=== PATIENT | female | born 1985 | race Caucasian/White ===

== ENCOUNTER → 2016-12-20 | Outpatient (CLI) | payer OTHER ==
[~2016-12-20] MED LIST: IBUP600T44 PO; INSU70IN2 SC; NVLGI7030 SC; OXYC-57 PO; PRENTAB26 PO
[2016-12-20 14:52] LABS: URINE APPEARANCE CLEAR (CLEAR); URINE BILIRUBIN NEG (NEG); URINE COLOR YELLOW; URINE EPITHELIAL CELL AUTO >30 /lpf (0-5); URINE NITRITE NEG (NEG); URINE SPECIFIC GRAVITY 1.008 (1.000-1.030); UROBILINOGEN NEG (NEG)
[2016-12-20 14:59] LABS: MANUAL MICROSCOPIC REQUIRED? NO; REVIEW REQ? NO
== END | disposition home or self-care (01) ==
LOC: C.LABSPEC 14:01
PROVIDERS: ATTEND Obstetrics & Gynecology
DX: Z34.93 Encounter for supervision of normal pregnancy, unspecified, third trimester (principal)

== ENCOUNTER → 2016-12-20 | Outpatient (CLI) | payer OTHER ==
[2016-12-20 11:25] LABS: HEMATOCRIT 34.4 % (37-47)
== END | disposition home or self-care (01) ==
LOC: C.LAB1850 10:09
PROVIDERS: ATTEND Obstetrics & Gynecology
DX: Z34.93 Encounter for supervision of normal pregnancy, unspecified, third trimester (principal)

== ENCOUNTER → 2017-01-03 | Outpatient (CLI) | payer OTHER | END | disposition home or self-care (01) | LOC: C.LABSPEC 16:01 | PROVIDERS: ATTEND Internal Medicine | DX: Z34.93 Encounter for supervision of normal pregnancy, unspecified, third trimester (principal) ==

== ENCOUNTER 2017-03-06 00:07 | Inpatient (IN) | payer OTHER ==
[~2017-03-06] VITALS: Ht 160 cm; Wt 95.7 kg
[2017-03-06] VITALS (16 sets, daily range): BP systolic 108–118; BP diastolic 68–74; PULSE 75–87; TEMP 36.7–36.8; O2SAT 95–98; Ht 160 cm; Wt 95.7 kg
[~2017-03-06 00:07] MED LIST changes: -INSU70IN2 SC; -NVLGI7030 SC; -OXYC-57 PO
[2017-03-06] MEDS ORDERED: LACTATED RINGER'S 1000ML 1,000 ML IV SCH ×2 (00:29→13:15)
[2017-03-06] MEDS ORDERED: CEFAZOLIN IV 2,000 MG in DEXTROSE 5% 50ML 50 ML IV STA (00:33)
[2017-03-06] MEDS ORDERED: CITRIC ACID/SODIUM CITRATE 15 ML UDC PO STA (00:33)
[2017-03-06 00:49] LABS: BASO % 0.1 %; BASO ABS # 0.02 K/uL (0-0.2); COMPLETE YES; EOS % 0.9 %; HEMATOCRIT 34.5 % (37-47); IG% 1.7 %; LYMPH % 16.8 %; LYMPH ABS # 2.34 K/uL (1.2-3.4); MEAN CELL VOLUME 84.1 fL (80-100); MEAN CORPUSCULAR HEMOGLOBIN 27.8 pg (25-34); MEAN PLATELET VOLUME 12.3 fL (7.4-10.4); MONO % 7.2 %; NEUT % 73.3 %; PLATELET COUNT 170 K/uL (130-400); WHITE BLOOD COUNT 13.96 K/uL (4.8-10.8)
[2017-03-06] MEDS ORDERED: MoRPHine SULFATE PF 1 MG/ML 10 ML AMP/VIAL ONE (00:51)
[2017-03-06] MEDS ORDERED: FENTANYL CITRATE INJ 50 MCG/1 ML 2 ML VIAL ONE (00:51)
[2017-03-06] MEDS ORDERED: EpHEDrine SULFATE INJ 50 MG/ML AMP ONE (00:51)
[2017-03-06] MEDS ORDERED: ONDANSETRON INJ 2 MG/ML 2 ML VIAL ONE (00:51)
[2017-03-06] MEDS ORDERED: OXYTOCIN INJ 10 UNITS/ML VIAL ONE (00:51)
[2017-03-06] MEDS ORDERED: PHENYLEPHRINE 100MCG/ML 5ML SYR ONE (01:36)
--- NOTE | 2017-03-06 01:57 | [facility] Post Operative Brief Note ---
Immediate Operative Summary Operative Date Mar 06, 2017. Pre-Operative Diagnosis 1. Term 2. Previous caesarean section 3. Gestational diabetes on insulin 4. Spontaneous rupture of membranes Post-Operative Diagnosis Same Procedure(s) Performed Repeat caesarean section Lower uterine transverse incision Delivery of live male child at [address] Back Shaper And Presser Surgeon(s) None Estimated Blood Loss 800cc Findings viable male , Apgars 8/9; weight 7lbs 8ozs, art/venous cord gasses pending , nml appearing tubes and ovaries bilaterally Fluids (cc crystalloids) 1300 Specimens Placenta-hold Cord blood Cord blood gases Drains [place] to gravity Anesthesia Spinal Complication(s) None Disposition L&D
[2017-03-06] MEDS ORDERED: SUPERCREAM 0.870 % 15GM JAR EXT PRN (02:00)
[2017-03-06] MEDS ORDERED: DIPHTHERIA/TETANUS/PERTUSSIS 0.5 ML SYR/VIAL IM. ONE (02:00)
[2017-03-06] MEDS ORDERED: HYDROCORTISONE ACETATE 25 MG SUPP PR PRN (02:00)
[2017-03-06] MEDS ORDERED: LANOLIN OINT EXT PRN ×2 (02:00)
[2017-03-06] MEDS ORDERED: DiphenhydrAMINE HCL 50 MG/ML VIAL IV PRN ×3 (02:00→19:00)
[2017-03-06] MEDS ORDERED: BENZOCAINE 20% AER SPR 82.5 GM CAN EXT PRN (02:00)
[2017-03-06] MEDS ORDERED: LACTATED RINGER'S 1000ML 500 ML IV PRN (02:08)
[2017-03-06] MEDS ORDERED: SODIUM CHLORIDE 0.9% 1000ML 1,000 ML IV PRN (02:08)
[2017-03-06] MEDS ORDERED: NALOXONE HCL INJ 0.08 MG in SYRINGE 1.8 ML IV PRN (02:08)
--- NOTE | 2017-03-06 02:13 | Anesthesiology Progress Note ---
Anesthesia Post Op Note Date & Time Mar 06, 2017 at 02:08 Notes Mental Status: alert / awake / arousable, participated in evaluation Pt Amnestic to Procedure: No (as expected) Nausea / Vomiting: adequately controlled Pain: adequately controlled Airway Patency, RR, SpO2: stable & adequate BP & HR: stable & adequate Hydration State: stable & adequate Anesthetic Complications: no major complications apparent Pt had C/S for prior C/S, in labor w/ ruptured membranes, under spinal. Her anesthetic course was completely uneventful. The procedure was finished so quickly that I was unable to give the amount of IV fluids that I would have liked given the EBL, so I instructed the pt's nurse to give the remaining 700 mL LR in the bag. BP and HR very much stable despite this. Post-op vitals BP 128 /71, HR 96, RR 18, SpO2 98% on RA, T 36.8.
[2017-03-06] MEDS ORDERED: MoRPHine SULFATE PF 1 MG/ML 10 ML AMP/VIAL EPI PRN (02:15)
[2017-03-06] MEDS ORDERED: MoRPHine SULFATE 2 MG/ML CARP IV PRN (02:15)
[2017-03-06] MEDS ORDERED: NO NARCOTICS OR SEDATIVES SCH (02:15)
[2017-03-06] MEDS ORDERED: NALOXONE HCL 0.4 MG/1 ML VIAL/CARP IV PRN (02:15)
[2017-03-06] MEDS ORDERED: NALBUPHINE HCL INJ 10 MG/ML AMP IV PRN (02:15)
[2017-03-06] MEDS ORDERED: ONDANSETRON INJ 2 MG/ML 2 ML VIAL IV PRN ×2 (02:15→19:00)
[2017-03-06] MEDS ORDERED: MEPERIDINE HCL 25 MG/ML CARP IV PRN (02:15)
[2017-03-06] MEDS ORDERED: DC INTRASPINAL MORPHINE SCH (02:15)
[2017-03-06] MEDS ORDERED: PROMETHAZINE HCL INJ 25 MG in SODIUM CHLORIDE 0.9% 50ML 50 ML IV PRN (02:15)
[2017-03-06] MEDS ORDERED: EpHEDrine SULFATE INJ 50 MG/ML AMP IV PRN (02:15)
[2017-03-06] MEDS: OXYTOCIN INJ 20 UNITS in LACTATED RINGER'S 1000ML 1,000 ML IV SCH ×2 (02:36→07:43)
[2017-03-06] MEDS ORDERED: NVLGI7030 SC (02:40)
[2017-03-06] MEDS ORDERED: INSU70IN2 SC (02:40)
--- NOTE | 2017-03-06 03:22 | HISTORY & PHYSICAL EXAMINATION ---
DATE OF ADMISSION: 03/06/2017 ADMITTING DIAGNOSES: 1. Term . 2. Previous section. 3. Spontaneous rupture of membranes. 4. Gestational diabetes, on insulin. ADMISSION HISTORY: The patient is a 31-year-old 2, para 1 with an EDC of 15 March by dates and first trimester ultrasound who is admitted with spontaneous rupture of membranes. The patient states that membranes ruptured approximately 2300 hours on 03/05/2017. She described the fluid as clear. She had subsequent onset of contractions after rupture of membranes. The patient had been scheduled for a repeat section on 10 March. Her first ended in section because of a breech presentation. She had been counseled on the risks and benefits of a vaginal after a section, but the patient had opted for a repeat section. The patient's course was remarkable for gestational diabetes, on insulin. Insulin started at approximately 28 weeks. The patient was followed with growth scans as well as testing, which was all reassuring. The remainder of her course was unremarkable. The patient's blood type A positive, antibody negative, rubella immune, hepatitis B negative. She declined a quad screen and she had a positive third trimester beta strep culture. PAST MEDICAL HISTORY AND OBSTETRICAL: As above. NEUROPSYCHOLOGY DIRECTOR HISTORY: Cryosurgery of the cervix. MEDICAL: None. SURGICAL: [place] teeth extraction. ALLERGIES: TO PENICILLIN, UNKNOWN REACTION OCCURRED A CHILD. SOCIAL HISTORY: No smoking. FAMILY HISTORY: Noncontributory. REVIEW OF SYSTEMS: As per HPI. ADMISSION PHYSICAL EXAMINATION: GENERAL: Shows a gravid female in no acute distress. VITAL SIGNS: Blood pressure of 108/78 and a weight of 211 pounds. HEENT EXAMINATION: Unremarkable. NECK: Supple. LUNGS: Clear. HEART: With a regular rhythm and rate. ABDOMEN: Gravid, vertex, positive heart tones, estimated weight of 8 pounds. PELVIC: Shows the cervix to be 3-cm dilated, 80% effaced, -1 with gross rupture of membranes. EXTREMITIES: Shows +1 edema, no deep calf tenderness. NEUROLOGIC: Grossly intact. IMPRESSION: A 31-year-old 2, para 1, gestational diabetes on insulin, previous section with spontaneous rupture of membranes. PLAN: The risks, benefits and alternatives to the section have been discussed. While the benefits will be delivery of the infant, the risks of bleeding, infection, inadvertent injury to bowel or bladder, and injury to the baby. Permit has been signed and she wishes to proceed.
--- NOTE | 2017-03-06 03:22 | OPERATIVE REPORT ---
DATE OF OPERATION: 03/06/2017 PREOPERATIVE DIAGNOSES: 1. Term . 2. Previous section. 3. Gestational diabetes, on insulin. 4. Spontaneous rupture of membranes. POSTOPERATIVE DIAGNOSES: Same. PROCEDURE PERFORMED: Repeat low cervical transverse section. SURGEON: Panfilo Back MD ANESTHESIA: Spinal. FINDINGS: Viable male infant with Apgars of 8 and 9, and weight of 7 pounds 8 ounces. Arterial and venous cord gases pending. Normal-appearing tubes and ovaries bilaterally. PROCEDURE IN DETAIL: The patient was taken to the operating room and after spinal anesthesia was placed in supine position and draped and prepped in the usual fashion. Pfannenstiel-type incision through previous surgical scar was made. Underlying subcutaneous tissue was dissected down to the ventral abdominal fascia, which was nicked and opened in a horizontal manner. Preperitoneal fascia was dissected away until the peritoneal cavity was entered and opened in a vertical manner. The peritoneum was entered and opened in a vertical manner. Bladder blade was placed. The peritoneum overlying the uterus was elevated and opened in a semi-lunar fashion. The inferior margin of which was taken down creating the bladder flap. The uterus was entered sharply and extended in a semi-lunar fashion manually. Viable male infant with description as above was delivered. Cord was clamped and cut and the baby was passed off to pediatrics who was in attendance for the delivery. Cord gases, cord blood samples obtained. Placenta was delivered spontaneously and the uterus was exteriorized. The uterine cavity was wiped clean of any residual blood tissue and/or clot. Uterine incision was then closed with 2 layers of 4-0 Vicryl, the first a running locking stitch, the second an imbricating stitch. Hemostasis achieved. The uterus was returned to the pelvic cavity. The paracolic gutters were cleared bilaterally of any blood tissue and/or clot. Uterine incision was copiously irrigated with 1000 mL of warm saline. Pedicles were inspected for hemostasis, which was present. Sponge and needle count was correct. The rectus muscle was then plicated in the midline with a running 2-0 Vicryl stitch. The fascia was closed laterally with a running 0 Vicryl suture. Subcutaneous tissue was irrigated with warm saline and the skin incision was closed with a 4-0 Monocryl subcuticular stitch. Sterile dressing was applied and the patient was taken to the recovery room in satisfactory condition. I attest to the content of the Intraoperative Record and any orders documented therein. Any exceptio ns are noted below.
[2017-03-06] MEDS: KETOROLAC TROMETHAMINE 30 MG/ML VIAL IV. PRN ×3 (05:51→18:10)
[2017-03-06] MEDS: PRENATAL VITAMIN TAB PO SCH (07:55)
[2017-03-06] MEDS: FERROUS SULFATE 325 MG TAB PO SCH (07:55)
[2017-03-06] MEDS ORDERED: NURSING VERBAL MED ORDER ONE (13:00)
[2017-03-06] MEDS ORDERED: OXYCODONE/ACETAMINOPHEN 5-325 TAB PO PRN (19:00)
[2017-03-06] MEDS ORDERED: KETOROLAC TROMETHAMINE 30 MG/ML VIAL IV. PRN (19:00)
[2017-03-07 06:32] LABS: BASO % 0.3 %; BASO ABS # 0.04 K/uL (0-0.2); COMPLETE YES; EOS % 0.9 %; IG% 1.3 %; LYMPH % 19.5 %; LYMPH ABS # 2.82 K/uL (1.2-3.4); MEAN CELL VOLUME 86.6 fL (80-100); MEAN CORPUSCULAR HEMOGLOBIN 28.9 pg (25-34); MEAN CORPUSCULAR HGB CONC 33.3 g/dl (32-36); MEAN PLATELET VOLUME 12.1 fL (7.4-10.4); MONO % 6.1 %; NEUT % 71.9 %; PLATELET COUNT 150 K/uL (130-400); RED BLOOD COUNT 3.81 M/uL (4.2-5.4); WHITE BLOOD COUNT 14.48 K/uL (4.8-10.8)
--- NOTE | 2017-03-07 07:01 | Progress Note ---
Subjective Mar 07, 2017. Subjective conversation w/ patient, physical exam Voiding: no voiding problems Diet Tolerance: Regular Diet Feeding Type: Breast Feeding Objective Vital Signs Date Time Temp Pulse Resp B/P Pulse Ox O2 Delivery O2 Flow Rate FiO2 03/06/17 23:25 36.8 87 18 111/70 Room Air 03/06/17 23:25 98 Room Air 03/06/17 19:50 36.7 85 20 118/74 Room Air 03/06/17 18:25 16 96 03/06/17 18:00 16 96 03/06/17 17:00 18 96 03/06/17 16:00 16 96 03/06/17 16:00 96 Room Air 03/06/17 16:00 36.7 75 16 108/68 96 Room Air 03/06/17 15:00 18 95 03/06/17 12:40 16 96 03/06/17 12:40 36.8 76 18 112/69 Room Air 03/06/17 11:40 16 96 03/06/17 10:40 18 96 03/06/17 09:40 16 98 03/06/17 08:40 16 98 03/06/17 07:50 36.8 80 18 110/68 Room Air 03/06/17 07:50 Room Air 03/06/17 07:40 18 96 Physical Exam General Appearance: WELL-APPEARING, NO APPARENT DISTRESS Respiratory/Chest: lungs clear Cardiovascular: regular rate, rhythm Fundus: Firm, Non-Tender Incision Description: Clean, Dry & Intact Extremities: no calf tenderness Laboratory Results Last 24 Hours Test 03/07/17 06:15 White Blood Count 14.48 K/uL Red Blood Count 3.81 M/uL Hemoglobin 11.0 g/dL Hematocrit 33.0 % Mean Corpuscular Volume 86.6 fL Mean Corpuscular Hemoglobin 28.9 pg Mean Corpuscular Hemoglobin Concent 33.3 g/dl Platelet Count 150 K/uL Mean Platelet Volume 12.1 fL Neutrophils (%) (Auto) 71.9 % Lymphocytes (%) (Auto) 19.5 % Monocytes (%) (Auto) 6.1 % Eosinophils (%) (Auto) 0.9 % Basophils (%) (Auto) 0.3 % Neutrophils # (Auto) 10.42 K/uL Lymphocytes # (Auto) 2.82 K/uL Monocytes # (Auto) 0.88 K/uL Eosinophils # (Auto) 0.13 K/uL Basophils # (Auto) 0.04 K/uL RDW Standard Deviation 44.8 fL RDW Coefficient of Variation 14.4 % Immature Granulocyte % (Auto) 1.3 % Immature Granulocyte # (Auto) 0.19 K/uL Assessment and Plan Post-Op Day#: 1 Continue Routine Care: - begin ambulation - post C/S instructions discussed - routine care - doing well
[2017-03-07 08:00] VITALS: BP 102/66; PULSE 64; TEMP 36.6
[2017-03-07] MEDS: PRENATAL VITAMIN TAB PO SCH (08:45)
[2017-03-07] MEDS: FERROUS SULFATE 325 MG TAB PO SCH (08:45)
[2017-03-07] MEDS: IBUPROFEN 600 MG TAB PO PRN ×4 (08:46→21:18)
[2017-03-07] MEDS: OXYCODONE/ACETAMINOPHEN 5-325 TAB PO PRN ×4 (08:46→21:18)
[2017-03-07 15:30] VITALS: BP 118/70; PULSE 72; TEMP 36.5; O2SAT 97
--- NOTE | 2017-03-07 17:21 | Discharge Instructions ---
Discharge Instructions Date of Service Mar 07, 2017. Admission Reason for Admission: LABOR Discharge Goals Goal(s): Routine recovery after Activity Recommendations Activity Limitations: per Instructions/Follow-up section . Instructions / Follow-Up Instructions / Follow-Up ACTIVITY RECOMMENDATIONS: * Gradual return to full activity over the next 2-3 weeks. * No lifting - nothing heavier than baby over the next 2-3 weeks. * Do not engage in vigorous exercise, sexual activity or sports until cleared by your physician. * Do not drive or operate any motorized equipment until cleared by your physician. * You may shower/bathe daily. MEDICATIONS: For discomfort or pain, you may use Acetaminophen (Tylenol), Ibuprofen (Advil), or Naproxen (Aleve) following the package directions. For constipation you may use Colace following the package directions. BREAST CARE: If you are not breast feeding: * Wear a supportive bra 24 hours a day for one to two weeks. * Avoid stimulating your breasts and nipples as much as possible during the first few weeks after delivery. * When taking a shower, have the warm water hit your back, not breasts. * When your breasts feel full, apply ice packs. Usually three to four times a day helps ease the discomfort. * Take a mild pain medication (Tylenol / Motrin) when you are uncomfortable. If breast feeding: * Use breast milk to lubricate nipples. Lansinoh cream may be used for sore nipples. You do not need to remove cream prior to breast feeding. If using a different brand of cream, check the label for directions regarding removal of cream prior to nursing. * Wear a supportive bra. * If having problems with breasts or breast feeding, call a brand sales consultant or your health care provider. SPECIAL CARE INSTRUCTIONS: When you are discharged from the hospital, it is important for you to follow the instructions listed below: * During the first week at home, you should be able to care for yourself and your baby. In addition, the usual light household activities are encouraged. * Limit your activities to the way you feel. Do not try to clean the house or move furniture. Be sensible. * If you actively engage in sports and have done so up until the time of your delivery, you may resume these activities as soon as you feel able. This may take up to one month or even longer. Use good judgment. * Continue to take your vitamins for at least six weeks after the of your baby. * Your diet need not be limited unless you were on a special diet before your delivery. Breast-feeding mothers need around 2500 calories per day and at least 64-80 ounces of fluid per day (8 to 10 glasses). * You should eat foods from the four major food groups. Crash diets or fad diets are to be avoided. Eating lean meats, fresh fruits and vegetables, low-fat dairy products, high fiber foods and a regular exercise program, will help you get back to your pre- weight without putting your health at risk. * Constipation is sometimes a problem after delivery. Take a mild laxative as needed. If breast feeding, Milk of Magnesia is acceptable to use. You may use a suppository or Fleets enema. * A daily shower or tub bath is suggested. Wash incision daily with warm soapy water and pat dry. It doesn't need to be covered unless drainage is present. * A bloody vaginal discharge will usually continue until around four weeks . A small amount of bleeding may continue for as long as six weeks. Vaginal discharge changes from the bright red bleeding after delivery to pink then brownish and finally yellowish-pink before becoming white and disappearing. * Bleeding may increase with activity. Your first period may come in 4-8 weeks. If you are breast feeding, your period may be delayed even longer. * [place] (sex) can begin whenever both you and your partner feel comfortable and do not have any form of genital infection. It is recommended that you wait at least six weeks for internal and external healing to occur. If you have questions, please talk to your health care practitioner. A condom should be used to prevent infection and . * Foreplay, gentle intercourse and lubrication is very important the first several times to prevent pain. A water-based lubricant such as K-Y jelly or Astroglide may be used. * If you have RH negative blood and your baby is RH positive, you will receive RHOGAM by injection prior to discharge. The nurse will give you a card to keep with you that has the date and place that you received RHOGAM after delivery. * During your care, you had a Rubella screen done to check for the presence of rubella antibodies in your blood. If your test was negative, you will receive a Rubella vaccine prior to discharge. This vaccine may cause a fever, soreness at the injection site and flu-like symptoms. If these symptoms persist, notify your health care practitioner. is not advised for one month after a Rubella vaccine. * Verbalizes understanding of car seat law as reviewed with patient nursing. * Car Seat hand-out given and reviewed with patient by nursing. * Shaken baby information reviewed with patient by nursing. Call you doctor if: * Heavy bleeding (saturating several pads an hour) or passing clots the size of your fist. * A fever >101 degrees F (38.3 degrees C) on two occasions four hours apart and /or chills. * Unusual pain in the pelvic or vaginal areas. * Call the doctor for any increased redness, drainage or swelling around the incision and any pain unrelieved by prescribed pain medication. * "Baby Blues" lasting longer than two weeks. If you have any questions or concerns, call your health care practitioner at . FOLLOW UP VISIT: * Please call the office at to schedule a 6 week examination. It is important you keep this appointment. It is important for you to make arrangements for either yearly or twice yearly check-ups thereafter. Current Hospital Diet Patient's current hospital diet: Regular OB Diet Discharge Diet Recommended Diet: Regular OB Diet Procedures Procedures Performed: Repeat caesarean section Lower uterine transverse incision Delivery of live male child at 0127 Pending Studies Studies pending at discharge: no Medical Emergencies . Who to Call and When: Medical Emergencies: If at any time you feel your situation is an emergency, please call [phone] immediately. . Non-Emergent Contact Non-Emergency issues call your: Vegetable Harvest Machine Operator . . "Provider Documentation" section prepared by Yecenia Winchester. VTE Core Measure Inpt VTE Proph given/why not?: Treatment not indicated
[2017-03-07] MEDS ORDERED: MAGNESIUM HYDROXIDE SUSP 30 ML UDC PO SCH (22:00)
[2017-03-07] MEDS ORDERED: SENNA 8.6 MG TAB PO SCH (22:00)
[2017-03-07 23:30] VITALS: BP 114/71; PULSE 86; TEMP 36.7; O2SAT 96
[2017-03-08 07:00] LABS: HEMATOCRIT 32.2 % (37-47)
[2017-03-08 07:22] VITALS: BP 127/79; PULSE 65; TEMP 36.7; O2SAT 98
--- NOTE | 2017-03-08 07:32 | Discharge Instructions ---
Discharge Instructions Date of Service Mar 08, 2017. Admission Reason for Admission: LABOR Discharge Discharge Diagnosis / Problem: s/p delivery Discharge Goals Goal(s): Routine recovery after Medications Continue Dispensed Medications: supercream Activity Recommendations Activity Limitations: as noted below . Instructions / Follow-Up Instructions / Follow-Up ACTIVITY RECOMMENDATIONS: * Gradual return to full activity over the next 2-3 weeks. * No lifting - nothing heavier than baby over the next 2-3 weeks. * Do not engage in vigorous exercise, sexual activity or sports until cleared by your physician. * Do not drive or operate any motorized equipment until cleared by your physician. * You may shower/bathe daily. MEDICATIONS: For discomfort or pain, you may use Acetaminophen (Tylenol), Ibuprofen (Advil), or Naproxen (Aleve) following the package directions. For constipation you may use Colace following the package directions. BREAST CARE: If you are not breast feeding: * Wear a supportive bra 24 hours a day for one to two weeks. * Avoid stimulating your breasts and nipples as much as possible during the first few weeks after delivery. * When taking a shower, have the warm water hit your back, not breasts. * When your breasts feel full, apply ice packs. Usually three to four times a day helps ease the discomfort. * Take a mild pain medication (Tylenol / Motrin) when you are uncomfortable. If breast feeding: * Use breast milk to lubricate nipples. Lansinoh cream may be used for sore nipples. You do not need to remove cream prior to breast feeding. If using a different brand of cream, check the label for directions regarding removal of cream prior to nursing. * Wear a supportive bra. * If having problems with breasts or breast feeding, call a oracle identity management consultant or your health care provider. SPECIAL CARE INSTRUCTIONS: When you are discharged from the hospital, it is important for you to follow the instructions listed below: * During the first week at home, you should be able to care for yourself and your baby. In addition, the usual light household activities are encouraged. * Limit your activities to the way you feel. Do not try to clean the house or move furniture. Be sensible. * If you actively engage in sports and have done so up until the time of your delivery, you may resume these activities as soon as you feel able. This may take up to one month or even longer. Use good judgment. * Continue to take your vitamins for at least six weeks after the of your baby. * Your diet need not be limited unless you were on a special diet before your delivery. Breast-feeding mothers need around 2500 calories per day and at least 64-80 ounces of fluid per day (8 to 10 glasses). * You should eat foods from the four major food groups. Crash diets or fad diets are to be avoided. Eating lean meats, fresh fruits and vegetables, low-fat dairy products, high fiber foods and a regular exercise program, will help you get back to your pre- weight without putting your health at risk. * Constipation is sometimes a problem after delivery. Take a mild laxative as needed. If breast feeding, Milk of Magnesia is acceptable to use. You may use a suppository or Fleets enema. * A daily shower or tub bath is suggested. Wash incision daily with warm soapy water and pat dry. It doesn't need to be covered unless drainage is present. * A bloody vaginal discharge will usually continue until around four weeks . A small amount of bleeding may continue for as long as six weeks. Vaginal discharge changes from the bright red bleeding after delivery to pink then brownish and finally yellowish-pink before becoming white and disappearing. * Bleeding may increase with activity. Your first period may come in 4-8 weeks. If you are breast feeding, your period may be delayed even longer. * [place] (sex) can begin whenever both you and your partner feel comfortable and do not have any form of genital infection. It is recommended that you wait at least six weeks for internal and external healing to occur. If you have questions, please talk to your health care practitioner. A condom should be used to prevent infection and . * Foreplay, gentle intercourse and lubrication is very important the first several times to prevent pain. A water-based lubricant such as K-Y jelly or Astroglide may be used. * If you have RH negative blood and your baby is RH positive, you will receive RHOGAM by injection prior to discharge. The nurse will give you a card to keep with you that has the date and place that you received RHOGAM after delivery. * During your care, you had a Rubella screen done to check for the presence of rubella antibodies in your blood. If your test was negative, you will receive a Rubella vaccine prior to discharge. This vaccine may cause a fever, soreness at the injection site and flu-like symptoms. If these symptoms persist, notify your health care practitioner. is not advised for one month after a Rubella vaccine. * Verbalizes understanding of car seat law as reviewed with patient nursing. * Car Seat hand-out given and reviewed with patient by nursing. * Shaken baby information reviewed with patient by nursing. Call you doctor if: * Heavy bleeding (saturating several pads an hour) or passing clots the size of your fist. * A fever >101 degrees F (38.3 degrees C) on two occasions four hours apart and /or chills. * Unusual pain in the pelvic or vaginal areas. * Call the doctor for any increased redness, drainage or swelling around the incision and any pain unrelieved by prescribed pain medication. * "Baby Blues" lasting longer than two weeks. If you have any questions or concerns, call your health care practitioner at . FOLLOW UP VISIT: * Please call the office at to schedule a 6 week examination. It is important you keep this appointment. It is important for you to make arrangements for either yearly or twice yearly check-ups thereafter. Current Hospital Diet Patient's current hospital diet: Regular OB Diet Discharge Diet Recommended Diet: Regular OB Diet Procedures Procedures Performed: Repeat caesarean section Lower uterine transverse incision Delivery of live male child at 0127 Pending Studies Studies pending at discharge: no Medical Emergencies . Who to Call and When: Medical Emergencies: If at any time you feel your situation is an emergency, please call [phone] immediately. . Non-Emergent Contact Non-Emergency issues call your: Cartographic Drafter Call Non-Emergent contact if: you have a fever, temperature is above 101 . . "Provider Documentation" section prepared by Odilon Aguilar. VTE Core Measure Inpt VTE Proph given/why not?: Treatment not indicated
[2017-03-08] MEDS ORDERED: OXYC-57 PO (07:36)
--- NOTE | 2017-03-08 07:45 | Progress Note ---
Subjective Mar 08, 2017. Subjective conversation w/ patient, physical exam, chart review, lab review Ambulation: ambulating normally Voiding: no voiding problems Diet Tolerance: Regular Diet Lochia: Moderate Feeding Type: Bottle Feeding Pain: complains of pain 3-4/10, controlled with medication Review of Systems Constitutional: No chills, No fever Respiratory: No cough, No dyspnea at rest, No dyspnea on exertion, No shortness of breath, No sputum, No wheezing Cardiac: No chest pain, No palpitations Breast: No breast lump, No breast pain, No nipple discharge Abdomen: No constipation, No diarrhea, No nausea, No pain, No vomiting Female : No dysuria, No hematuria Patient was seen at the bedside. No acute events overnight. Denies headache. Objective Vital Signs Date Time Temp Pulse Resp B/P Pulse Ox O2 Delivery O2 Flow Rate FiO2 03/07/17 23:30 96 Room Air 03/07/17 23:30 36.7 86 18 114/71 96 Room Air 03/07/17 15:30 36.5 72 18 118/70 97 Room Air 03/07/17 15:30 97 Room Air 03/07/17 08:00 36.6 64 18 102/66 Room Air 03/07/17 08:00 Room Air Physical Exam General Appearance: WELL-APPEARING, WD/WN Respiratory/Chest: lungs clear, normal breath sounds Cardiovascular: regular rate, rhythm Abdomen: normal bowel sounds, soft Fundus: Firm Incision Description: Clean, Dry & Intact Extremities: + pedal edema (trace of edema noted b/l lower ext R>L) Laboratory Results Last 24 Hours Test 03/08/17 06:29 Medications Current Inpatient Medications Medications (Trade) Dose Ordered Sig/Arcadio Route Start Time Stop Time Status Last Admin Dose Admin Ketorolac Tromethamine (Toradol Inj) 30 mg Q6H PRN IV. 03/06/17 19:00 03/11/17 18:59 03/06/17 23:59 30 MG Oxycodone/ Acetaminophen (Percocet 5-325mg Tab) 1 tab Q4H PRN PO 03/06/17 19:00 03/20/17 18:59 03/07/17 21:18 1 TAB Oxycodone/ Acetaminophen (Percocet 5-325mg Tab) 2 tab Q4H PRN PO 03/06/17 19:00 03/20/17 18:59 Ibuprofen (Motrin Tab) 600 mg Q4H PRN PO 03/06/17 02:00 04/05/17 01:59 03/07/17 21:18 600 MG Ondansetron HCl (Zofran Inj) 4 mg Q4H PRN IV 03/06/17 19:00 04/05/17 18:59 Prenat Multivit/ [place]/Iron/Folic Ac ( Vitamin Tab) 1 tab DAILY PO 03/06/17 08:00 04/05/17 07:59 03/07/17 08:45 1 TAB Magnesium Hydroxide (Milk Of Magnesia Susp) 30 ml HS PO 03/07/17 22:00 04/06/17 21:59 03/07/17 22:35 30 ML Ferrous Sulfate (Feosol Tab) 325 mg DAILY PO 03/06/17 08:00 04/05/17 07:59 03/07/17 08:45 325 MG Cocaine HCl (Supercream 0.870% Cr) BID PRN EXT 03/06/17 02:00 03/20/17 01:59 Lanolin (Lanolin Oint) PRN PRN EXT 03/06/17 02:00 04/05/17 01:59 Hydrocortisone Acetate (Anusol Hc Supp) 25 mg BID PRN CO 03/06/17 02:00 04/05/17 01:59 Benzocaine (Dermoplast Aero Spr) 1 appln PRN PRN EXT 03/06/17 02:00 04/05/17 01:59 Senna (Senokot Tab) 17.2 mg HS PO 03/07/17 22:00 04/06/17 21:59 03/07/17 22:35 17.2 MG Morphine Sulfate (Duramorph Pf Inj) TODAY PRN EPI 03/06/17 02:15 Diphenhydramine HCl (Benadryl Cap) 25 mg QID PRN PO 03/06/17 19:00 04/05/17 18:59 Diphenhydramine HCl 25 mg 25 mg QID PRN IV 03/06/17 19:00 04/05/17 18:59 Lactated Ringer's (Lr 1000ml) 1,000 ml @ 125 mls/hr Q8H IV 03/06/17 13:15 04/05/17 13:14 03/06/17 14:05 125 MLS/HR Assessment and Plan Post-Op Day#: 1 Continue Routine Care: A/P: This is a 31 y/o , POD2, had elective repeat . Patient is clinically doing well and stable to be discharge. Plan: No signs of post depression. Discussed resting, feeding, pain control, mastitis, control, follow up in 6 weeks and reasons to call sooner, if necessary. Continue with pain medication as needed, and continue vitamins. Patient understands and keen for home. Patient is stable for discharge. Resident Physician Supervision Note: I interviewed and examined the patient. Discussed with Dr. Aguilar and agree with findings and plan as documented in the note. Any exceptions or clarifications are listed here: , pod #2 from c/s. Doing well. exam as above . uterus firm, nt, 1 below u. Plan d/c home. Instructions reviewed with the patient. Documented By: Yecenia Winchester
[2017-03-08 08:00] VITALS: O2SAT 98
--- NOTE | 2017-03-08 08:22 | DISCHARGE SUMMARY ---
ADMITTING DIAGNOSES: 1. Term . 2. Previous section. 3. Spontaneous rupture of membranes. 4. Gestational diabetes on insulin. DISCHARGE DIAGNOSES: Same. PROCEDURES PERFORMED: Repeat low cervical transverse section. DISCHARGE MEDICATIONS: 1. Percocet 5/325 1-2 p.o. q. 4-6 hours p.r.n. pain. 2. Motrin 600 mg p.o. q. 6 hours p.r.n. pain. ADMISSION HISTORY: The patient is a 31-year-old 2, para 1 with an EDC of 15 March by dates and first trimester ultrasound at 38+ weeks gestational age who was admitted with spontaneous rupture of membranes. The patient states membranes ruptured approximately 2300 hours on 03/05/2017. She described the fluid as clear with subsequent onset of contractions. The patient had been scheduled for repeat on 10 March. Her first ended in because of a breech presentation. She had been counseled on the risks and benefits of a vaginal after section, but patient opted for repeat . The patient's course remarkable for gestational diabetes on insulin. Insulin started at approximately 28 weeks gestational age. The patient was followed with growth scans as well as testing which were all reassuring. The patient's blood type A positive, antibody negative, rubella immune, hepatitis B negative. She declined a quad screen. She had a positive third trimester beta strep culture. ADMISSION PHYSICAL EXAMINATION: GENERAL: Gravid female in no acute distress. VITAL SIGNS: Blood pressure 108/70, weight of 211 pounds. HEENT: Unremarkable. NECK: Supple. LUNGS: Clear. HEART: With a regular rhythm and rate. ABDOMEN: Gravid, vertex, positive heart tones, estimated weight of 8 pounds. PELVIC: Showed the cervix to be 2 cm dilated, 80% effaced, -1 station with gross rupture of membranes. EXTREMITIES: Showed +1 edema with no deep calf tenderness. NEUROLOGIC: Grossly intact. ADMISSION LABORATORY VALUES: Showed an H\T\H of 11.4 and 34.5. HOSPITAL COURSE: On day of admission, patient was taken to the operating room where she underwent the above listed procedures. Operative findings showed a viable male with Apgars of 8 and 9 and weight of 7 pounds 8 ounces. Normal appearing tubes and ovaries bilaterally. Postoperatively, the patient did well. Chandler catheter was removed on the first postoperative day. H\T\H came back stable at 11.0 and 33.0. By the 2nd postoperative day, the patient was ambulating without difficulty and tolerating a regular diet. She was discharged home with the routine discharge instructions and the prescriptions for the medications as listed as above. She will follow up in the office in 2 weeks' time for a postoperative check but as always she has been instructed to call with any questions, problems or difficulties.
[2017-03-08] MEDS: PRENATAL VITAMIN TAB PO SCH (08:23)
[2017-03-08] MEDS: FERROUS SULFATE 325 MG TAB PO SCH (08:23)
[2017-03-08] MEDS: IBUPROFEN 600 MG TAB PO PRN (08:24)
[2017-03-08] MEDS: OXYCODONE/ACETAMINOPHEN 5-325 TAB PO PRN (08:25)
[2017-03-08 11:30] VITALS: BP_DIAS 79; PULSE 65; TEMP 36.7
== END 2017-03-08 11:30 | disposition home or self-care (01) | DRG 766 ==
LOC: C.OPB 00:07 → C.LD 00:07 → C.OPB 00:30 → C.OBG 04:38
PROVIDERS: ADMIT Obstetrics & Gynecology; ATTEND Obstetrics & Gynecology
PROC: 10D00Z1 Extraction of Products of Conception, Low, Open Approach (ICD-10-PCS; principal; 2017-03-06 00:46)
DX: O75.82 Onset (spontaneous) of labor after 37 completed weeks of gestation but before 39 completed weeks gestation, with delivery by (planned) cesarean section (principal); O34.211 Maternal care for low transverse scar from previous cesarean delivery; O24.424 Gestational diabetes mellitus in childbirth, insulin controlled; O99.824 Streptococcus B carrier state complicating childbirth; Z37.0 Single live birth; Z3A.38 38 weeks gestation of pregnancy

== ENCOUNTER → 2017-05-20 | Outpatient (CLI) | payer OTHER ==
[~2017-05-20] MED LIST changes: -IBUP600T44 PO; +OXYC-57 PO
[2017-05-20 10:39] LABS: GLUCOSE,2HR PP 92 mg/dl (70-140)
[2017-05-20 11:30] LABS: GTGD 75 Grams
== END | disposition home or self-care (01) ==
LOC: C.LAB1850 07:04
PROVIDERS: ATTEND Obstetrics & Gynecology
DX: O24.414 Gestational diabetes mellitus in pregnancy, insulin controlled (principal); Z3A.00 Weeks of gestation of pregnancy not specified